=== PATIENT | male | born 1995 | race Caucasian/White ===

== ENCOUNTER 2019-02-21 14:44 | Emergency (ER) | payer SELFPAY ==
--- NOTE | 2019-02-21 15:04 | ER Document Report ---
ED Medical Screen (RME) - General Chief Complaint: Chest Pain Stated Complaint: CHEST PAIN Time Seen by Provider: 02/21/19 14:59 Primary Care Provider: KAREN SHERIDAN MD [Primary Care Provider] - Follow up as needed Mode of Arrival: Ambulatory Information source: Patient Notes: 23-year-old male presented to ED for intermittent chest pain he states for months. He states he does not have a primary doctor and he has not been coughing. He denies any past medical history by his mother. Only surgery is tonsils and adenoids. smokes 2 ppd and drinks qoweek I have greeted and performed a rapid initial assessment of this patient. A comprehensive ED assessment and evaluation of the patient, analysis of test results and completion of medical decision making process will be conducted by an additional ED providers. TRAVEL OUTSIDE OF THE [place] IN LAST 30 DAYS: No - Related Data Allergies/Adverse Reactions: No Known Allergies Allergy (Verified 02/21/19 14:45) Past Medical History - Immunizations Immunizations up to date: Yes Hx Diphtheria, Pertussis, Tetanus Vaccination: Yes - 2012 Physical Exam - Vital signs Vitals: Temp Pulse Resp BP Pulse Ox 99.0 F 115 H 18 151/87 H 95 02/21/19 14:52 02/21/19 14:52 02/21/19 14:52 02/21/19 14:52 02/21/19 14:52 Course - Vital Signs Vital signs: Temp Pulse Resp BP Pulse Ox 99.0 F 115 H 18 151/87 H 95 02/21/19 14:52 02/21/19 14:52 02/21/19 14:52 02/21/19 14:52 02/21/19 14:52 Doctor's Discharge - Discharge Referrals: KAREN SHERIDAN MD [Primary Care Provider] - Follow up as needed
[2019-02-21] MEDS ORDERED: ASPIRIN 81 MG TABLET, CHEWABLE PO ONE (15:06)
[2019-02-21 15:44] LABS: ABSOLUTE BASOPHILS # (AUTO) 0.2 10^3/uL (0.0-0.2); ABSOLUTE EOSINOPHILS # (AUTO) 0.1 10^3/uL (0.0-0.6); ABSOLUTE LYMPHOCYTES (AUTO) 3.5 10^3/uL (0.5-4.7); ABSOLUTE MONOCYTES (AUTO) 1.1 10^3/uL (0.1-1.4); ABSOLUTE NEUT (AUTO) 8.8 10^3/uL (1.7-8.2); BASOPHILS % (AUTO) 1.3 % (0-2); EOSINOPHILS % (AUTO) 0.7 % (0-6); HEMATOCRIT 43.6 % (37.9-51.0); LYMPHOCYTES % (AUTO) 25.9 % (13-45); MEAN CORPUSCULAR HEMOGLOBIN 29.8 pg (27.0-33.4); MEAN CORPUSCULAR HGB CONC 34.3 g/dL (32.0-36.0); MEAN CORPUSCULAR VOLUME 87 fl (80-97); MONOCYTES % (AUTO) 7.7 % (3-13); PLATELET COUNT 278 10^3/uL (150-450); RED BLOOD COUNT 5.02 10^6/uL (4.35-5.55); RED CELL DISTRIBUTION WIDTH 12.7 % (11.5-14.0); SEGMENTED NEUTROPHILS % (AUTO) 64.4 % (42-78); TOTAL CELLS COUNTED % (AUTO) 100 %; WHITE BLOOD COUNT 13.7 10^3/uL (4.0-10.5)
[2019-02-21 15:55] LABS: APPEARANCE,URINE SLIGHTLY-CLOUDY; BILIRUBIN,URINE SMALL (NEGATIVE); COLOR,URINE AMBER; GLUCOSE, URINE NEGATIVE (NEGATIVE); KETONES,URINE TRACE mg/dL (NEGATIVE); LEUKOCYTE ESTERASE,URINE NEGATIVE (NEGATIVE); NITRITE,URINE NEGATIVE (NEGATIVE); PROTEIN,URINE NEGATIVE (NEGATIVE); URINE SPECIFIC GRAVITY 1.032
[2019-02-21 16:02] LABS: ALBUMIN 4.9 g/dL (3.5-5.0); ALKALINE PHOSPHATASE 85 U/L (38-126); ANION GAP 12 (5-19); ASPARTATE AMINO TRANSFERASE 24 U/L (17-59); BILIRUBIN,DIRECT 0.3 mg/dL (0.0-0.4); BILIRUBIN,TOTAL 0.4 mg/dL (0.2-1.3); BLOOD UREA NITROGEN 10 mg/dL (7-20); CALCIUM 9.9 mg/dL (8.4-10.2); CARBON DIOXIDE 25 mmol/L (22-30); CHLORIDE 105 mmol/L (98-107); CREATINE KINASE 238 U/L (55-170); GLUCOSE 119 mg/dL (75-110); POTASSIUM 4.1 mmol/L (3.6-5.0); TOTAL PROTEIN 7.7 g/dL (6.3-8.2)
[2019-02-21 16:04] LABS: URINE AMPHETAMINES SCREEN NEGATIVE; URINE BARBITURATES SCREEN NEGATIVE; URINE BENZODIAZEPINES SCREEN NEGATIVE; URINE COCAINE SCREEN NEGATIVE; URINE MARIJUANA (THC) SCREEN NEGATIVE; URINE METHADONE SCREEN NEGATIVE; URINE PHENCYCLIDINE SCREEN NEGATIVE
[2019-02-21 16:18] LABS: CREATINE KINASE MB < 0.22 ng/mL (<4.55); TROPONIN I < 0.012 ng/mL
[2019-02-21] MEDS ORDERED: MAG HYDROX/AL HYDROX/SIMETH SUSP 30 ML UDCUP PO ONE ×2 (17:23→19:08)
[2019-02-21] MEDS ORDERED: LIDOCAINE 2% VISCOUS SOLN 20 ML UDCUP PO ONE (17:23)
--- NOTE | 2019-02-21 17:50 | ER Document Report ---
Entered by HESHAM KIDD SCRIBE 02/21/19 1726 Acting as scribe for:RAÚL ROSAS MD ED General - General Chief Complaint: Chest Pain Stated Complaint: CHEST PAIN Time Seen by Provider: 02/21/19 14:59 Primary Care Provider: KAREN SHERIDAN MD [ACTIVE STAFF] - Follow up as needed Mode of Arrival: Ambulatory Information source: Patient Notes: Patient is a 23 year old male that presents to the emergency department today with complaints of reproducible chest pain for the last x4-5 months. Patient reports until today, this pain would always begin after he has been lying supine for some time. Patient states it had always occurred while he was sleeping, usually waking him up in the middle of the night. Patient states today he was bowling when his pain began. Patient states "fpc through game 2 I developed chest pressure, I sat down and drank water and it went away, then started again after eating pizza at [employer]." Patient reports no change with food over the last several months. Patient states his pain is reproducible with coughing or deep breathing. TRAVEL OUTSIDE OF THE [place] IN LAST 30 DAYS: No - Related Data Allergies/Adverse Reactions: No Known Allergies Allergy (Verified 02/21/19 14:45) Past Medical History - General Information source: Patient - Social History Smoking Status: Current Every Day Smoker Cigarette use (# per day): Yes - 2 ppd Frequency of alcohol use: Social Drug Abuse: None Occupation: [employer] Lives with: Family Family History: Reviewed & Not Pertinent Patient has suicidal ideation: No Patient has homicidal ideation: No - Immunizations Immunizations up to date: Yes Hx Diphtheria, Pertussis, Tetanus Vaccination: Yes - 2012 Review of Systems - Review of Systems Constitutional: No symptoms reported EENT: No symptoms reported Cardiovascular: See HPI, Chest pain Respiratory: See HPI, Hurts to breathe. denies: Short of breath Gastrointestinal: No symptoms reported Genitourinary: No symptoms reported Male Genitourinary: No symptoms reported Musculoskeletal: No symptoms reported Skin: No symptoms reported Hematologic/Lymphatic: No symptoms reported Neurological/Psychological: No symptoms reported -: Yes All other systems reviewed and negative Physical Exam - Vital signs Vitals: Temp Pulse Resp BP Pulse Ox 99.0 F 115 H 18 151/87 H 95 02/21/19 14:52 02/21/19 14:52 02/21/19 14:52 02/21/19 14:52 02/21/19 14:52 - Notes Notes: Physical Exam: General: Alert, appears well. HEENT: Normocephalic. Atraumatic. PERRL. Extraocular movements intact. Oropharynx clear. Neck: Supple. Non-tender. Respiratory: No respiratory distress. Clear and equal breath sounds bilaterally. Cardiovascular: Regular rate and rhythm. Abdominal: Epigastric tenderness with palpation. No distension. Normal Bowel Sounds. Back: No gross abnormalities. Extremities: Moves all four extremities. Upper extremities: Normal inspection. Normal ROM. Lower extremities: Normal inspection. No edema. Normal ROM. Neurological: Normal cognition. AAOx4. Normal speech. Psychological: Normal affect. Normal Mood. Skin: Warm. Dry. Normal color. Course - Re-evaluation Re-evalutation: 02/21/19 19:11 Patient is epigastric discomfort is much improved after GI cocktail. This time he states it is worn off, however on repeat exam he continues to have minimal discomfort compared to initial exam. - Vital Signs Vital signs: Temp Pulse Resp BP Pulse Ox 99.0 F 115 H 18 151/87 H 95 02/21/19 14:52 02/21/19 14:52 02/21/19 14:52 02/21/19 14:52 02/21/19 14:52 - Laboratory Result Diagrams: 02/21/19 15:20 02/21/19 15:20 Laboratory results interpreted by me: 02/21/19 02/21/19 02/21/19 15:20 15:20 15:20 WBC 13.7 H Absolute Neuts (auto) 8.8 H Glucose 119 H Creatine Kinase 238 H Urine Ketones TRACE H Urine Bilirubin SMALL H Urine Urobilinogen 4.0 H - Diagnostic Test Radiology reviewed: Image reviewed - Right upper quadrant ultrasound unremarkable other than fatty liver. Discharge - Discharge Clinical Impression: GERD (gastroesophageal reflux disease) Qualifiers: Esophagitis presence: with esophagitis Qualified Code(s): K21.0 - Gastro- esophageal reflux disease with esophagitis Condition: Stable Disposition: HOME, SELF-CARE Additional Instructions: Reflux Disease (GERD) Gastro-Esophageal Reflux Disease (GERD) is caused by stomach acid refluxing back up into the esophagus. The valve at the end of the esophagus may be weak. This is common in persons with a hiatal hernia. GERD symptoms can include indigestion, chest pain, heartburn, or food "sticking." Certain foods, alcohol, and aspirin can make GERD worse. Treatment depends on the severity. Usually, antacids or acid-suppressing medicines are used. When the esophagus is acutely inflamed, the physician will often prescribe membrane-protective drugs such as Carafate. Some patients benefit from medication such as Reglan that tightens the valve at the top of the stomach. Avoid those foods that bring on your symptoms. For many people, these foods are coffee, chocolate, onions, garlic, and carbonated drinks. Don't use alcohol, aspirin, caffeine, or tobacco. Don't eat late at night -- within 4 hours of bedtime. Don't over-eat. If necessary, elevate the head of your bed about 4 inches so that stomach acid will not roll up into your esophagus. Call the doctor if you develop severe chest pain, inability to swallow fluids, fever, or worsening symptoms. Take Prilosec OTC once daily. Eat a bland diet. Take antacids between meals and at bedtime for the next few days. Stop drinking alcohol and smoking cigarettes. Elevate the head of your bed slightly to help reduce your reflux. Do not eat large meals or late in the evening or lay down soon after eating. Follow-up with a local medical doctor if not improving. RETURN TO THE EMERGENCY ROOM IF ANY NEW OR WORSENING SYMPTOMS. Referrals: KAREN SHERIDAN MD [ACTIVE STAFF] - Follow up as needed Scribe Attestation: 02/21/19 18:09 I personally performed the services described in the documentation, reviewed and edited the documentation which was dictated to the scribe in my presence, and it accurately records my words and actions. I personally performed the services described in the documentation, reviewed and edited the documentation which was dictated to the scribe in my presence, and it accurately records my words and actions.
--- NOTE | 2019-02-21 18:31 | EKG REPORT ---
SEVERITY:- OTHERWISE NORMAL ECG - SINUS TACHYCARDIA : Confirmed by: Jesse Winters 21-Feb-2019 18:30:49
--- NOTE | 2019-02-21 18:50 | RADIOLOGY REPORT (SQ) ---
EXAM DESCRIPTION: CHEST 2 VIEWS COMPLETED DATE/TIME: 02/21/2019 6:42 pm REASON FOR STUDY: chest pain severe COMPARISON: None. EXAM PARAMETERS: NUMBER OF VIEWS: two views TECHNIQUE: Digital Frontal and Lateral radiographic views of the chest acquired. RADIATION DOSE: NA LIMITATIONS: none FINDINGS: LUNGS AND PLEURA: No opacities, masses or pneumothorax. No pleural effusion. MEDIASTINUM AND HILAR STRUCTURES: No masses or contour abnormalities. HEART AND VASCULAR STRUCTURES: Heart normal size. No evidence for failure. BONES: No acute findings. HARDWARE: None in the chest. OTHER: No other significant finding. IMPRESSION: No acute abnormality of the lungs. No focal airspace opacity. TECHNICAL DOCUMENTATION: JOB ID: [id number]- All Rights Reserved Reading location - IP/workstation name: [email or web address]
[2019-02-21 19:11] VITALS: BP 128/73
--- NOTE | 2019-02-21 19:15 | RADIOLOGY REPORT (SQ) ---
EXAM DESCRIPTION: U/S ABDOMEN LIMITED W/O DOP COMPLETED DATE/TIME: 02/21/2019 7:01 pm REASON FOR STUDY: epigastric pain COMPARISON: None. TECHNIQUE: Grayscale images acquired of the right upper quadrant and recorded on PACS. Additional se lected color Doppler and spectral images recorded. LIMITATIONS: Study limited due to acoustical interference from fat or from air in the bowel. FINDINGS: PANCREAS: Obscured by overlying bowel gas. LIVER: Measures 16.9 cm. Increased echogenicity suggestive of fatty infiltration. LIVER VASCULATURE: Normal directional flow of the main portal vein. GALLBLADDER: Contracted. No shadowing stones. Normal wall thickness. No pericholecystic fluid. ULTRASOUND-DETECTED RENTERIA'S SIGN: Negative. INTRAHEPATIC DUCTS AND COMMON DUCT: CBD and intrahepatic ducts normal caliber. INFERIOR VENA CAVA: Obscured by overlying bowel gas. AORTA: No aneurysm at the visualized segments. RIGHT KIDNEY: Measures 10.5 cm in length. Normal echogenicity. No hydronephrosis. PERITONEAL CAVITY AND RIGHT PLEURAL SPACE: No ascites or effusions. IMPRESSION: 1. Contracted gallbladder. No cholelithiasis or biliary ductal dilation. 2. Fatty infiltration of the liver. TECHNICAL DOCUMENTATION: JOB ID: [id number] [employer]- All Rights Reserved Reading location - IP/workstation name: [email or web address]
== END 2019-02-21 19:21 | disposition home or self-care (01) ==
LOC: ER 14:44
DX: K21.0 Gastro-esophageal reflux disease with esophagitis (principal); R07.9 Chest pain, unspecified; F17.210 Nicotine dependence, cigarettes, uncomplicated
CPT/HCPCS: 93005; 36415; 82553; 82550; 83690; 85025; 80053; 81001; 84484; 80307; 71046; 76705; 93010; J3490; 99285